=== PATIENT | female | born 1995 | race Hispanic/Latino ===

== ENCOUNTER 2017-08-25 18:08 | Emergency (ER) | payer BC, OTHER ==
[2017-08-25 19:58] LABS: CREATININE 0.6 mg/dL (0.5-1.5); POTASSIUM 3.9 mmol/L (3.5-5.1)
[2017-08-25 20:00] LABS: PARTIAL THROMBOPLASTIN TIME 23.3 SEC (26.3-35.5); PROTHROMBIN TIME 10.5 SEC (9.6-11.6)
[2017-08-25 20:03] LABS: ALBUMIN 4.2 g/dL (3.5-5.0); BILIRUBIN,TOTAL 0.7 mg/dL (0.2-1.0); TOTAL PROTEIN, SERUM 7.5 g/dL (6.0-8.3)
[2017-08-25] MEDS ORDERED: SODIUM CHLORIDE 0.9% 1000ML 1,000 ML IV ONE (20:15)
[2017-08-25] MEDS ORDERED: ONDANSETRON HCL 4 MG/2 ML VIAL ONE (20:15)
[2017-08-25] MEDS ORDERED: DICYCLOMINE HCL 10 MG/ML 2ML AMP IM ONE (20:15)
[2017-08-25 20:16] LABS: BASOPHILS % (AUTO) 0.1 % (0.0-5.0); EOSINOPHILS % (AUTO) 0.1 % (0.0-8.0); LYMPHOCYTES % (AUTO) 7.7 % (21.0-51.0); MEAN CORPUSCULAR HEMOGLOBIN 28.5 pg (27.0-33.0); MEAN CORPUSCULAR HGB CONC 33.7 g/dL (32.0-36.0); MEAN CORPUSCULAR VOLUME 84.5 fL (80-100); MONOCYTES % (AUTO) 5.2 % (3.0-13.0); NEUTROPHILS % (AUTO) 86.9 % (40.0-77.0); PLATELET COUNT (AUTO) 209 K/uL (130-400); RED BLOOD CELL COUNT(AUTO) 4.02 MIL/uL (4.00-5.50); WHITE BLOOD COUNT (AUTO) 16.8 K/uL (4.8-10.8)
[2017-08-25 20:36] LABS: APPEARANCE,URINE Clear (CLEAR); BILIRUBIN,URINE Negative (NEGATIVE); COLOR,URINE Dark Yellow (YELLOW); GLUCOSE, URINE (UA) Negative (NEGATIVE); KETONES,URINE Negative (NEGATIVE); LEUKOCYTE ESTERASE ,URINE Negative (NEGATIVE); NITRATE,URINE Negative (NEGATIVE); OCCULT BLOOD,URINE Negative (NEGATIVE); PH,URINE 7.5 (5.0-8.0); PROTEIN,URINE Negative (NEGATIVE)
[2017-08-25 20:37] LABS: HCG,QUAL RESULT NEGATIVE (NEGATIVE)
[2017-08-25] MEDS ORDERED: KETOROLAC TROMETHAMINE 15MG/ML ONE (20:40)
== END 2017-08-25 21:23 | disposition home or self-care (01) ==
LOC: EDSEX 18:08 → EDH 18:08
DX: K85.10 Biliary acute pancreatitis without necrosis or infection (principal)
CPT/HCPCS: 36415; 76705; 80053; 81003; 81025; 83690; 85025; 85610; 85730; 96361; 96372; 96374; 96375; 99285; J0500; J1885; J2405; J7030

== ENCOUNTER 2021-05-02 01:41 | Emergency (ER) | payer BC, MEDICAID ==
[~2021-05-02] VITALS: Ht 160 cm; Wt 78.0 kg
[~2021-05-02 01:41] MED LIST: PREN-154 PO
[2021-05-02 01:42] VITALS: BP 130/81
[2021-05-02] MEDS ORDERED: KETOROLAC 60 MG VIAL (30MG/ML) IM ONE (02:30)
[2021-05-02 03:08] LABS: BASOPHILS % (AUTO) 0.4 % (0.0-5.0); EOSINOPHILS % (AUTO) 0.6 % (0.0-8.0); HEMATOCRIT 31.8 % (36-48); LYMPHOCYTES % (AUTO) 21.9 % (21.0-51.0); MEAN CORPUSCULAR HEMOGLOBIN 25.5 pg (27.0-33.0); MEAN CORPUSCULAR HGB CONC 30.8 g/dL (32.0-36.0); MEAN CORPUSCULAR VOLUME 82.6 fL (79-99); MONOCYTES % (AUTO) 6.3 % (3.0-13.0); NEUTROPHILS % (AUTO) 70.2 % (40.0-77.0); PLATELET COUNT (AUTO) 216 K/uL (130-400); RED BLOOD CELL COUNT(AUTO) 3.85 MIL/uL (4.00-5.50); RED CELL DISTRIBUTION WIDTH 14.8 % (11.0-15.5); WHITE BLOOD COUNT (AUTO) 10.8 K/uL (4.8-10.8)
[2021-05-02 03:11] LABS: CREATININE 0.7 mg/dL (0.5-1.5); POTASSIUM 3.5 mmol/L (3.5-5.1)
[2021-05-02 03:13] LABS: BILIRUBIN,TOTAL 0.6 mg/dL (0.2-1.0); TOTAL PROTEIN, SERUM 7.3 g/dL (6.0-8.3)
[2021-05-02] MEDS ORDERED: DICY10 PO (03:45)
== END 2021-05-02 05:49 | disposition home or self-care (01) ==
LOC: EDH 01:41
DX: K80.50 Calculus of bile duct without cholangitis or cholecystitis without obstruction (principal); Z79.899 Other long term (current) drug therapy
CPT/HCPCS: 36415; 76705; 80053; 81025; 83690; 85025; 96372; 99284; J1885

== ENCOUNTER 2021-05-04 09:59 | Inpatient (IN) | payer BC ==
[~2021-05-04] VITALS: Ht 160 cm; Wt 77.7 kg
[~2021-05-04 09:59] MED LIST changes: +DICY10 PO
[2021-05-04 10:46] LABS: BASOPHILS % (AUTO) 0.5 % (0.0-5.0); EOSINOPHILS % (AUTO) 0.8 % (0.0-8.0); HEMATOCRIT 34.1 % (36-48); LYMPHOCYTES % (AUTO) 28.5 % (21.0-51.0); MEAN CORPUSCULAR HEMOGLOBIN 25.3 pg (27.0-33.0); MEAN CORPUSCULAR HGB CONC 30.8 g/dL (32.0-36.0); MEAN CORPUSCULAR VOLUME 82.2 fL (79-99); MONOCYTES % (AUTO) 8.8 % (3.0-13.0); NEUTROPHILS % (AUTO) 61.1 % (40.0-77.0); PLATELET COUNT (AUTO) 205 K/uL (130-400); RED BLOOD CELL COUNT(AUTO) 4.15 MIL/uL (4.00-5.50); RED CELL DISTRIBUTION WIDTH 15.2 % (11.0-15.5); WHITE BLOOD COUNT (AUTO) 6.5 K/uL (4.8-10.8)
[2021-05-04 10:55] LABS: APPEARANCE,URINE Clear (CLEAR); BILIRUBIN,URINE Negative (NEGATIVE); COLOR,URINE Dark Yellow (YELLOW); GLUCOSE, URINE (UA) Negative (NEGATIVE); KETONES,URINE Negative (NEGATIVE); LEUKOCYTE ESTERASE ,URINE Negative (NEGATIVE); NITRATE,URINE Negative (NEGATIVE); OCCULT BLOOD,URINE Negative (NEGATIVE); PROTEIN,URINE Negative (NEGATIVE)
[2021-05-04 10:58] LABS: HCG,QUAL RESULT NEGATIVE (NEGATIVE)
[2021-05-04 11:06] LABS: CREATININE 0.6 mg/dL (0.5-1.5); POTASSIUM 3.9 mmol/L (3.5-5.1)
[2021-05-04 11:15] LABS: BILIRUBIN,TOTAL 2.5 mg/dL (0.2-1.0); TOTAL PROTEIN, SERUM 7.6 g/dL (6.0-8.3)
[2021-05-04] MEDS ORDERED: MORPHINE 4 MG SYG IVP SCH (11:30)
[2021-05-04] MEDS ORDERED: LACTATED RINGERS 1000ML 1,000 ML IV SCH (11:30)
[2021-05-04] MEDS ORDERED: ONDANSETRON 4MG INJ IVP SCH (11:30)
[2021-05-04] MEDS: 0.9%NACL 1000ML 1,000 ML IV SCH (12:30)
[2021-05-04] MEDS ORDERED: 0.9%NACL 1000ML 1,000 ML IV SCH (13:00)
[2021-05-04 13:36] VITALS: BP 114/75
[2021-05-04 16:00] VITALS: BP 119/69
[2021-05-04] MEDS ORDERED: KETOROLAC 15MG/ML VIAL (15MG/ML) IV PRN (18:30)
[2021-05-04 20:00] VITALS: BP 123/79
[2021-05-05 00:39] VITALS: BP 106/54
[2021-05-05 04:48] VITALS: BP 112/52
[2021-05-05 06:01] LABS: HEMATOCRIT 33.3 % (36-48); MEAN CORPUSCULAR HEMOGLOBIN 24.9 pg (27.0-33.0); MEAN CORPUSCULAR HGB CONC 29.7 g/dL (32.0-36.0); MEAN CORPUSCULAR VOLUME 83.9 fL (79-99); RED BLOOD CELL COUNT(AUTO) 3.97 MIL/uL (4.00-5.50); RED CELL DISTRIBUTION WIDTH 15.2 % (11.0-15.5); WHITE BLOOD COUNT (AUTO) 9.4 K/uL (4.8-10.8)
[2021-05-05 06:26] LABS: ALBUMIN 3.5 g/dL (3.5-5.0); BILIRUBIN,DIRECT 0.5 mg/dL (0.0-0.3); BILIRUBIN,TOTAL 1.1 mg/dL (0.2-1.0); CREATININE 0.6 mg/dL (0.5-1.5); POTASSIUM 3.9 mmol/L (3.5-5.1); TOTAL PROTEIN, SERUM 6.9 g/dL (6.0-8.3)
[2021-05-05 08:00] VITALS: BP 103/55
[2021-05-05 12:07] VITALS: BP 102/63
[2021-05-05 16:00] VITALS: BP 114/72
[2021-05-05] MEDS: 0.9%NACL 50ML 50 ML IV SCH ×2 (19:25→19:26)
[2021-05-05] MEDS: ZOSYN 3.375GM +NS 50ML IV SCH (19:25)
[2021-05-05] MEDS: LACTATED RINGERS 1000ML 1,000 ML IV SCH (19:26)
[2021-05-05 20:00] VITALS: BP 118/69
[2021-05-06 00:27] VITALS: BP 112/69
[2021-05-06] MEDS: 0.9%NACL 1000ML 1,000 ML IV SCH (03:13)
[2021-05-06] MEDS: LACTATED RINGERS 1000ML 1,000 ML IV SCH (03:13)
[2021-05-06 04:00] VITALS: BP 95/52
[2021-05-06] MEDS: 0.9%NACL 50ML 50 ML IV SCH ×2 (04:45→14:42)
[2021-05-06] MEDS: ZOSYN 3.375GM +NS 50ML IV SCH ×2 (04:45→14:42)
[2021-05-06 08:00] VITALS: BP 102/61
[2021-05-06 11:42] VITALS: BP 101/68
[2021-05-06 13:09] LABS: HEPATITIS A ANTIBODY IGM Negative (Negative); HEPATITIS B CORE IGM Negative (Negative); HEPATITIS Bs ANTIGEN SCREEN P Negative (Negative)
[2021-05-06 16:00] VITALS: BP 98/46
== END 2021-05-06 19:15 | disposition home or self-care (01) | DRG 444 ==
LOC: EDH 09:59 → EDHIP 12:03 → 3DH 13:10
PROVIDERS: ADMIT Hospitalist; ATTEND Hospitalist
DX: K80.20 Calculus of gallbladder without cholecystitis without obstruction (principal); K85.90 Acute pancreatitis without necrosis or infection, unspecified; K76.0 Fatty (change of) liver, not elsewhere classified; R79.89 Other specified abnormal findings of blood chemistry
CPT/HCPCS: 36415; 76705; 78226; 80053; 80074; 80076; 81003; 81025; 82150; 83690; 85025; 85027; 96372; A9537; G0378; J1885; J2270; J2405; J2543; J7120

== ENCOUNTER 2021-07-03 22:16 | Emergency (ER) | payer BC | END 2021-07-03 22:48 | disposition left against medical advice (07) | LOC: EDH 22:16 | DX: R10.11 Right upper quadrant pain (principal); R11.2 Nausea with vomiting, unspecified; Z53.21 Procedure and treatment not carried out due to patient leaving prior to being seen by health care provider ==

== ENCOUNTER 2023-08-28 20:23 | Observation (INO) | payer BC, MEDICAID ==
[2023-08-28] MEDS: ONDANSETRON 4MG INJ IVP SCH (22:22)
[2023-08-28] MEDS: LACTATED RINGERS 1000ML IV SCH (22:23)
[2023-08-28 22:59] LABS: APPEARANCE,URINE CLOUDY (CLEAR); BILIRUBIN,URINE NEGATIVE (NEGATIVE); COLOR,URINE YELLOW (YELLOW); GLUCOSE, URINE (UA) NEGATIVE (NEGATIVE); KETONES,URINE 150 mg/dL (NEGATIVE); LEUKOCYTE ESTERASE ,URINE 25 Leu/uL (NEGATIVE); NITRATE,URINE NEGATIVE (NEGATIVE); OCCULT BLOOD,URINE NEGATIVE (NEGATIVE); PROTEIN,URINE 70 mg/dL (NEGATIVE); UROBILINOGEN,URINE 6 mg/dL (0.2-1.0)
[2023-08-28 23:06] LABS: ADD UA MICROSCOPIC YES
[2023-08-28 23:07] LABS: BACTERIA,URINE RARE /HPF (None Seen); MUCUS,URINE FEW LPF (None Seen); SQUAMOUS EPITHELIAL CELL,UR MANY /HPF (0-2)
== END 2023-08-28 23:40 | disposition home or self-care (01) ==
LOC: EDH 20:23 → LDH 21:44
PROVIDERS: ADMIT Obstetrics & Gynecology; ATTEND Obstetrics & Gynecology
DX: O36.8130 Decreased fetal movements, third trimester, not applicable or unspecified (principal); O26.893 Other specified pregnancy related conditions, third trimester; R10.9 Unspecified abdominal pain; Z3A.32 32 weeks gestation of pregnancy
CPT/HCPCS: 96374; 96361; 81001; 76819; G0378 ×2; G0379; J2405; 96360

== ENCOUNTER 2023-10-25 16:14 | Observation (INO) | payer BC, MEDICAID ==
[~2023-10-25] VITALS: Ht 160 cm; Wt 80.4 kg
[~2023-10-25 16:14] MED LIST changes: -DICY10 PO; +DOCU-116 PO; +FERS325 PO; +IBUP-2077 PO
[2023-10-25 17:17] LABS: BASOPHILS # (AUTO) 0.04 K/uL (0.00-0.20); BASOPHILS % (AUTO) 0.4 % (0.0-5.0); EOSINOPHILS # (AUTO) 0.14 K/uL (0.00-0.70); EOSINOPHILS % (AUTO) 1.3 % (0.0-8.0); IMMATURE GRANULOCYTE ABSOLUTE 0.04 K/uL (0-1); LYMPHOCYTES # (AUTO) 2.5 K/uL (1.0-4.8); LYMPHOCYTES % (AUTO) 23.1 % (21.0-51.0); MEAN CORPUSCULAR HEMOGLOBIN 21.8 pg (27.0-33.0); MEAN CORPUSCULAR HGB CONC 29.4 g/dL (32.0-36.0); MEAN CORPUSCULAR VOLUME 74.2 fL (79-99); MONOCYTES # (AUTO) 0.6 K/uL (0.1-1.0); MONOCYTES % (AUTO) 5.9 % (3.0-13.0); NEUTROPHILS # (AUTO) 7.4 K/uL (1.8-7.7); NEUTROPHILS % (AUTO) 68.9 % (40.0-77.0); PLATELET COUNT (AUTO) 243 K/uL (130-400); RED BLOOD CELL COUNT(AUTO) 4.18 MIL/uL (4.00-5.50); RED CELL DISTRIBUTION WIDTH 23.5 % (11.0-15.5); WHITE BLOOD COUNT (AUTO) 10.8 K/uL (4.8-10.8)
[2023-10-25 17:26] LABS: CREATININE 0.7 mg/dL (0.5-1.0); POTASSIUM 3.9 mmol/L (3.5-5.1)
[2023-10-25 17:30] LABS: ALBUMIN 3.2 g/dL (3.5-5.0); BILIRUBIN,TOTAL 0.7 mg/dL (0.2-1.0); TOTAL PROTEIN, SERUM 7.4 g/dL (6.0-8.3)
[2023-10-25 18:04] LABS: HCG,QUALITATIVE URINE NEGATIVE (NEGATIVE)
[2023-10-25 18:07] LABS: APPEARANCE,URINE CLEAR (CLEAR); BILIRUBIN,URINE NEGATIVE (NEGATIVE); COLOR,URINE YELLOW (YELLOW); GLUCOSE, URINE (UA) NEGATIVE (NEGATIVE); KETONES,URINE NEGATIVE (NEGATIVE); LEUKOCYTE ESTERASE ,URINE 75 Leu/uL (NEGATIVE); NITRATE,URINE NEGATIVE (NEGATIVE); OCCULT BLOOD,URINE SMALL (NEGATIVE); PH,URINE 8.5 (5.0-8.0); PROTEIN,URINE 30 mg/dL (NEGATIVE)
[2023-10-25 18:08] LABS: ADD UA MICROSCOPIC YES
[2023-10-25 18:10] LABS: BACTERIA,URINE FEW /HPF (None Seen); MUCUS,URINE RARE LPF (None Seen); SQUAMOUS EPITHELIAL CELL,UR FEW /HPF (0-2)
[2023-10-25] MEDS ORDERED: IOHEXOL-350 75 ML VIAL IV ONE (18:12)
[2023-10-25] MEDS: KETOROLAC 30MG VIAL (30MG/ML) IVP ONE (18:35)
[2023-10-25] MEDS: ONDANSETRON 4MG INJ IVP ONE (18:35)
[2023-10-25] MEDS: 0.9%NACL 1000ML 1,000 ML IV ONE (18:35)
[2023-10-25] MEDS: ZOSYN 3.375GM +NS 50ML IVPB ONE (21:17)
[2023-10-25] MEDS ORDERED: ONDANSETRON 4MG INJ IV PRN (22:00)
[2023-10-25] MEDS: ZOSYN 3.375GM +NS 50ML IV SCH (22:00)
[2023-10-25] MEDS: LACTATED RINGERS 1000ML 1,000 ML IV SCH (22:57)
[2023-10-25 23:15] VITALS: BP 112/72; PULSE 63; RESP 17; O2SAT 97
[2023-10-26] VITALS (26 sets, daily range): BP systolic 98–143; BP diastolic 51–73; PULSE 60–89; RESP 12–18; O2SAT 98
[2023-10-26 05:38] LABS: BASOPHILS # (AUTO) 0.03 K/uL (0.00-0.20); BASOPHILS % (AUTO) 0.4 % (0.0-5.0); EOSINOPHILS # (AUTO) 0.15 K/uL (0.00-0.70); EOSINOPHILS % (AUTO) 1.9 % (0.0-8.0); HEMATOCRIT 29.9 % (36-48); IMMATURE GRANULOCYTE ABSOLUTE 0.04 K/uL (0-1); LYMPHOCYTES # (AUTO) 2.7 K/uL (1.0-4.8); LYMPHOCYTES % (AUTO) 33.1 % (21.0-51.0); MEAN CORPUSCULAR HEMOGLOBIN 22.2 pg (27.0-33.0); MEAN CORPUSCULAR HGB CONC 28.8 g/dL (32.0-36.0); MEAN CORPUSCULAR VOLUME 77.3 fL (79-99); MONOCYTES # (AUTO) 0.5 K/uL (0.1-1.0); MONOCYTES % (AUTO) 6.5 % (3.0-13.0); NEUTROPHILS # (AUTO) 4.6 K/uL (1.8-7.7); NEUTROPHILS % (AUTO) 57.6 % (40.0-77.0); PLATELET COUNT (AUTO) 228 K/uL (130-400); RED BLOOD CELL COUNT(AUTO) 3.87 MIL/uL (4.00-5.50); RED CELL DISTRIBUTION WIDTH 23.3 % (11.0-15.5)
[2023-10-26 05:47] LABS: INR <= 0.93 (0.85-1.15); PROTHROMBIN TIME 10.6 SEC (9.6-11.6)
[2023-10-26 05:48] LABS: PARTIAL THROMBOPLASTIN TIME 27.9 SEC (26.3-35.5)
[2023-10-26 05:54] LABS: ALBUMIN 2.6 g/dL (3.5-5.0); BILIRUBIN,TOTAL 0.6 mg/dL (0.2-1.0); CREATININE 0.5 mg/dL (0.5-1.0); MAGNESIUM 1.8 mg/dL (1.80-2.40); POTASSIUM 3.8 mmol/L (3.5-5.1); TOTAL PROTEIN, SERUM 6.1 g/dL (6.0-8.3)
[2023-10-26] MEDS: FAMOTIDINE 20MG VIAL IV SCH (08:53)
[2023-10-26 09:24] LABS: RETICULOCYTE % (AUTO) 1.5 % (0.42-2.23)
[2023-10-26 09:52] LABS: % IRON SATURATION 6.7 % (22-44)
[2023-10-26] MEDS: MORPHINE 2 MG SYG IV PRN (11:39)
[2023-10-26] MEDS ORDERED: LIDOCAINE PF 100MG/5ML (2%) SYRINGE 5ML ONE (16:50)
[2023-10-26] MEDS ORDERED: FENTANYL CITRATE PF 50 MCG/1 ML 2ML VIAL ONE ×2 (16:52→18:30)
[2023-10-26] MEDS ORDERED: PROPOFOL 10 MG/ML 20ML VIAL IV ONE (16:52)
[2023-10-26] MEDS ORDERED: ROCURONIUM BROMIDE 10MG/1ML 5ML VL ONE (16:52)
[2023-10-26] MEDS ORDERED: ROPIVACAINE 0.5% 5MG/ML 30ML ONE (16:52)
[2023-10-26] MEDS ORDERED: MIDAZOLAM HCL 1 MG/ML 2ML VIAL ONE (16:52)
[2023-10-26] MEDS ORDERED: EPHEDRINE SULFATE 50 MG/ML AMPULE ONE (18:16)
[2023-10-26] MEDS: MEPERIDINE-PF 25 MG/ML SYG ONE (19:34)
[2023-10-26] MEDS ORDERED: HYDROMORPHONE 0.5 MG SYG (0.5MG/0.5ML) IVP PRN (20:30)
[2023-10-27] VITALS (8 sets, daily range): BP systolic 101–110; BP diastolic 54–68; PULSE 59–78; RESP 18–20; O2SAT 97
[2023-10-27 05:38] LABS: HEMATOCRIT 30.5 % (36-48); MEAN CORPUSCULAR HEMOGLOBIN 22.1 pg (27.0-33.0); MEAN CORPUSCULAR HGB CONC 29.5 g/dL (32.0-36.0); MEAN CORPUSCULAR VOLUME 74.8 fL (79-99); RED BLOOD CELL COUNT(AUTO) 4.08 MIL/uL (4.00-5.50); RED CELL DISTRIBUTION WIDTH 23.7 % (11.0-15.5); WHITE BLOOD COUNT (AUTO) 8.7 K/uL (4.8-10.8)
[2023-10-27 06:15] LABS: CARBON DIOXIDE 24 mmol/L (21-32); CHLORIDE 104 mmol/L (101-111); CREATININE 0.6 mg/dL (0.5-1.0); GLOMERULAR FILTR. RATE CALC 128 mL/min (>90); GLUCOSE,RANDOM 151 mg/dL (70-105); SODIUM SERUM 140 mmol/L (136-145); UREA NITROGEN, BLOOD 4 mg/dL (7-18)
[2023-10-27] MEDS: HYDROCODONE/ACETAMINOPHEN 5/325 MG TAB PO PRN (12:30)
== END 2023-10-27 15:45 | disposition home or self-care (01) ==
LOC: EDH 16:14 → INTOOBSV 16:15 → EDHIP 16:15 → 3CH 22:20
PROVIDERS: ADMIT Hospitalist; ATTEND Hospitalist
DX: K35.80 Unspecified acute appendicitis (principal); D64.9 Anemia, unspecified; N39.0 Urinary tract infection, site not specified; R11.2 Nausea with vomiting, unspecified; Z79.899 Other long term (current) drug therapy
CPT/HCPCS: 96365; 96366 ×3; 99285; 80053 ×2; 83690; 85025 ×2; 87088; 81001; 81025; 36415 ×3; 74177; 96361 ×2; 96375 ×2; 44970; 96376 ×2; 83735; 82728; 85610; 85730; 82607; 88304; 80048; 85027; 82746; J7030 ×2; J2405; J1885; J2543 ×5; Q9967; A4600; A4452; A4344; J3490 ×5; J3010 ×2; J2270 ×2; J2001; J2250; J2704; J2175; J2795; C1769 ×3; A4649 ×4; A4930 ×3; G0378 ×5